=== PATIENT | female | born 1985 | race Two or more races ===

== ENCOUNTER → 2020-01-11 | Outpatient (CLI) | payer BC ==
[~2020-01-11] MED LIST: ACYC200 PO; ALBU90OI INH; AMOX500 PO; Bactrim Ds Tab1 EACH PO; CRUTCH4 UD; HYDR1TAB94 PO; IRON; MEDR10 PO; MEDR150I; OXYACE5T PO; RXOXYACE PO; TRAZ50 PO; [UNRECOGNIZED DRUG - OTHER]; [UNRECOGNIZED DRUG - OTHER]
[2020-01-12 18:09] LABS: HPV 16 Negative (Negative); HPV 18 Negative (Negative); HPV OTHER HR TYPES Negative (Negative)
== END | disposition home or self-care (01) ==
LOC: LAB SHORT 18:09 → LAB 18:09
PROVIDERS: Family Medicine
DX: Z12.4 Encounter for screening for malignant neoplasm of cervix (principal)
CPT/HCPCS: 87624; G0123

== ENCOUNTER → 2021-03-27 | Outpatient (CLI) | payer BC ==
[2021-03-30 10:10] LABS: HPV 16 Negative (Negative); HPV 18 Negative (Negative); HPV OTHER HR TYPES Negative (Negative)
== END ==
LOC: LAB SHORT 18:25
PROVIDERS: Family Medicine
DX: Z12.4 Encounter for screening for malignant neoplasm of cervix (principal)

== ENCOUNTER → 2021-06-13 | Outpatient (CLI) | payer BC ==
[2021-06-13 19:34] LABS: Adenovirus F 40/41 Not Detected (NOT DETECT); Astrovirus Not Detected (NOT DETECT); Campylobacter Sp Not Detected (NOT DETECT); Cryptosporidium Not Detected (NOT DETECT); Cyclospora Cayetanensis Not Detected (NOT DETECT); E. Coli O157 Not Detected (NOT DETECT); Entamoeba Histolytica Not Detected (NOT DETECT); Enteroaggregative E. coli-EAEC Not Detected (NOT DETECT); Enteropathogenic E. coli-EPEC Not Detected (NOT DETECT); Enterotoxigenic E. coli-ETEC Not Detected (NOT DETECT); Giardia Lamblia Not Detected (NOT DETECT); Norovirus GI/GII Not Detected (NOT DETECT); Plesiomonas Shigelloides Not Detected (NOT DETECT); Rotavirus A Not Detected (NOT DETECT); Salmonella Sp Not Detected (NOT DETECT); Sapovirus Not Detected (NOT DETECT); Shiga Toxin-prod E. coli-STEC Not Detected (NOT DETECT); Shigella/Enteroin E. coli-EIEC Not Detected (NOT DETECT); Vibrio Cholerae Not Detected (NOT DETECT); Vibrio Sp Not Detected (NOT DETECT); Yersinia Enterocolitica Not Detected (NOT DETECT)
== END | disposition home or self-care (01) ==
LOC: LAB SHORT 13:20
PROVIDERS: Family Medicine
DX: R10.9 Unspecified abdominal pain (principal); R14.0 Abdominal distension (gaseous)
CPT/HCPCS: 0097U; 87338

== ENCOUNTER 2023-02-21 11:40 | Day surgery (SDC) | payer OTHER ==
[2023-02-21] VITALS (18 sets, daily range): BP systolic 110–135; BP diastolic 59–91
[~2023-02-21] VITALS: Ht 167.6 cm; Wt 74.6 kg
--- NOTE | 2023-02-21 12:00 | NUR ---
Ambulatory in Day Surgery History, Chart, Medications and Allergies reviewed before start of procedure.Lungs clear T/O to Auscultation. Patient confirms NPO status and agrees with scheduled surgery. Patient States Post-Procedure ride home has been arranged.
--- NOTE | 2023-02-21 14:08 | NUR ---
02/21/23 1408 Julia Morris ALL COUNTS CORRECT.
--- NOTE | 2023-02-21 15:12 | NUR ---
INTO STEP VIA [facility].S/P HYSTEROSCOPY/D&C/ABLATION. PT IS A&OX4-REPORTS 3/10 RIGHT LOWER QUADRANT PAIN. PT DENIES NAUSEA. DIET TOLERATED INITIATED.
--- NOTE | 2023-02-21 16:35 | NUR ---
Patient up to Ambulate independently. Gait steady.Pt able to void. Discharge instructions reviewed with patient. Patient verbalizes understanding. Copy given to patient to take home. Discharged via wheelchair to private car for ride home.Pt spouse "Jaylon" is pt stock car driver.
== END 2023-02-21 16:35 | disposition home or self-care (01) ==
LOC: ORSCMMR 11:40
PROVIDERS: Obstetrics & Gynecology
PROC: 0U5B8ZZ Destruction of Endometrium, Via Natural or Artificial Opening Endoscopic (ICD-10-PCS; principal; 2023-02-21 13:00)
DX: N92.0 Excessive and frequent menstruation with regular cycle (principal); N94.6 Dysmenorrhea, unspecified; R10.9 Unspecified abdominal pain; Z87.891 Personal history of nicotine dependence
CPT/HCPCS: 88305; A9270; J0690; J1100; J1170; J1885; J2250; J2405; J2704; J3010; J7120